=== PATIENT | male | born 1990 | race Caucasian/White ===

== ENCOUNTER 2021-07-17 17:39 | Inpatient (IN) ==
[2021-07-17 20:01] LABS: Basophils % 0.3 %; Eosinophils # 0.1 K/mcL (0.0-0.6); Eosinophils % 0.6 %; Hematocrit 47.4 % (37.5-50.1); Hemoglobin 16.2 g/dL (12.9-16.9); Immature Granulocytes % 0.3 % (0-4); Lymphocytes # 1.1 K/mcL (0.6-4.6); Lymphocytes % 10.8 %; Mean Corpuscular HGB Conc 34.2 g/dL (31.6-35.5); Mean Corpuscular Hemoglobin 32.5 pg (28.0-33.3); Mean Corpuscular Volume 95.2 fL (83.0-100.0); Mean Platelet Volume 10.2 fL (9.4-12.4); Monocytes # 0.6 K/mcL (0.0-1.3); Monocytes % 5.8 %; Neutrophils # 8.6 K/mcL (1.6-8.9); Platelet Count 297 K/mcL (140-400); Red Blood Count 4.98 M/mcL (4.19-5.50); Red Cell Distribution Width 12.4 % (11.5-14.5); Segmented Neutrophils % 82.2 %; White Blood Count 10.4 K/mcL (4.3-11.1)
[2021-07-17 20:10] LABS: Bilirubin,Urine Small (Negative); Blood,Urine Negative (Negative); Clarity,Urine Clear (Clear); Color,Urine Light-Orange (Yellow); Glucose,Urine (UA) Normal (Normal); Ketones,Urine 60 mg/dL (Negative); Leukocyte Esterase,Urine Negative (Negative); Mucus,Urine Many per lpf (None-Few); Nitrite,Urine Negative (Negative); PH,Urine 5.5 pH Units (5.0-8.0); Protein,Urine 30 mg/dL (Neg-Trace); RBC,Urine 0-3 per hpf (0-3); WBC,Urine 0-3 per hpf (0-3)
[2021-07-17 20:12] LABS: Amphetamine Screen,Urine Negative ng/mL (Cutoff=1000); Barbiturate Screen,Urine Negative ng/mL (Cutoff=200); Benzodiazepines Screen,Urine Negative ng/mL (Cutoff=200); Cannabinoid Screen,Urine Positive ng/mL (Cutoff = 50); Cocaine Screen,Urine Negative ng/mL (Cutoff= 300); Opiate Screen,Urine Negative ng/mL (Cutoff=300); Phencyclidine Screen,Urine Negative ng/mL (Cutoff=25)
[2021-07-17 20:22] LABS: Acetaminophen < 10 mcg/mL (10-20); Alanine Aminotransferase 48 Units/L (7-52); Albumin 4.8 g/dL (3.5-5.7); Albumin/Globulin Ratio 1.5 (1.1-2.2); Alkaline Phosphatase 58 Units/L (34-104); Aspartate Amino Transferase 92 Units/L (13-39); BUN/Creatinine Ratio 11 (6-26); Bilirubin,Direct 0.4 mg/dL (0.0-0.2); Bilirubin,Indirect 1.8 mg/dL (0.0-1.0); Bilirubin,Total 2.2 mg/dL (0.3-1.0); Blood Urea Nitrogen 10 mg/dL (6-20); Calcium 10.2 mg/dL (8.6-10.3); Carbon Dioxide 26 mEq/L (23-29); Chloride 97 mEq/L (98-107); Ethanol < 10 mg/dL (Less than 10); Globulin 3.1 g/dL (2.4-3.5); Glucose 138 mg/dL (70-105); Osmolality,Calculated 283 (280-300); Potassium 3.6 mEq/L (3.5-5.1); Salicylate < 2.5 mg/dL (15.0-30.0); Sodium 136 mEq/L (136-145); Total Protein 7.9 g/dL (6.4-8.9); eGFR For African Americans > 60 (> 60); eGFR For Non-African Americans > 60 (> 60)
[2021-07-17 20:36] LABS: Influenza A PCR Negative (Negative); Influenza B PCR Negative (Negative); Resp. Syncytial Virus PCR Negative (Negative)
[2021-07-17 20:42] LABS: SARS-CoV-2 by PCR (In House) Negative (Negative)
[2021-07-17] MEDS ORDERED: Haloperidol Lactate 5 MG/ML VIAL IM PRN (22:43)
[2021-07-17] MEDS ORDERED: *HR* LORazepam 2 MG/ML VIAL IM PRN (22:43)
[2021-07-17] MEDS ORDERED: *HR* LORazepam 1 MG TABLET PO PRN (22:43)
[2021-07-17] MEDS ORDERED: haloperidoL 5 MG TABLET PO PRN (22:43)
[2021-07-18] MEDS: hydrOXYzine pamoate 25 MG CAPSULE PO PRN ×2 (00:17→17:13)
[2021-07-18] MEDS ORDERED: Mag Hydrox/Al Hydrox/Simeth 30 ML UDC PO PRN (10:33)
[2021-07-18] MEDS ORDERED: MOM Conc 10 ML UD.LIQ PO PRN (10:33)
[2021-07-18] MEDS: Losartan/HCTZ 50-12.5 TABLET PO SCH (14:12)
[2021-07-18] MEDS: ARIPiprazole 5 MG TABLET PO SCH (14:13)
[2021-07-18] MEDS: Loratadine 10 MG TABLET PO SCH (14:13)
[2021-07-18] MEDS: Acetaminophen 325 MG TABLET PO PRN (19:44)
[2021-07-18] MEDS: traZODone 50 MG TABLET PO PRN (20:48)
[2021-07-18] MEDS: clonazePAM 0.5 MG TABLET PO SCH (20:48)
[2021-07-19] MEDS: ARIPiprazole 5 MG TABLET PO SCH (08:47)
[2021-07-19] MEDS: Losartan/HCTZ 50-12.5 TABLET PO SCH (08:47)
[2021-07-19] MEDS: Loratadine 10 MG TABLET PO SCH (08:48)
[2021-07-19] MEDS: Acetaminophen 325 MG TABLET PO PRN (09:26)
[2021-07-19] MEDS: clonazePAM 0.5 MG TABLET PO SCH (20:35)
[2021-07-19] MEDS: traZODone 50 MG TABLET PO PRN ×2 (20:35→22:41)
[2021-07-19 20:47] VITALS: O2SAT 97
[2021-07-20] MEDS: Loratadine 10 MG TABLET PO SCH (08:30)
[2021-07-20] MEDS: Losartan/HCTZ 50-12.5 TABLET PO SCH (08:30)
[2021-07-20] MEDS ORDERED: ARIPiprazole 10 MG TABLET PO SCH (09:00)
[2021-07-20 09:34] VITALS: BP 155/103; PULSE 84; TEMP 97.1
== END 2021-07-20 12:35 | disposition home or self-care (01) | DRG 885 ==
LOC: EMEROOARM 17:39 → 1ANU 22:34
PROVIDERS: ADMIT Psychiatry & Neurology Psychiatry; ATTEND Psychiatry & Neurology Psychiatry